=== PATIENT | female | born 1990 | race Hispanic/Latino ===

== ENCOUNTER 2020-05-02 11:13 | Inpatient (IN) | payer OTHER, SELFPAY ==
[2020-05-02] MEDS ORDERED: Dexamethasone 4 mg/ml Vial ONE (11:47)
[2020-05-02] MEDS ORDERED: Acetaminophen 500 MG TAB ONE (11:47)
[2020-05-02 12:01] LABS: #Lymphocytes 0.8 thou/uL (1.20-3.40); #Monocytes 0.4 thou/uL (0.11-0.59); #Neutrophils 6.2 thou/uL (1.40-6.50); %Basophils 0.1 % (0.0-1.0); %Eosinophils 0.1 % (0.0-10.0); %Lymphocytes 10.4 % (21.0-51.0); %Monocytes 5.3 % (0.0-10.0); %Neutrophils 84.1 % (42.0-75.0); Hemoglobin 11.9 g/dL (12.0-16.0); Mean Corpuscular HGB CONC 32.7 g/dL (32.0-36.0); Mean Corpuscular Hemoglobin 27.8 pg (27.0-31.0); Mean Corpuscular Volume 84.8 fL (78.0-98.0); Platelet Count 164 thou/uL (130-400); RBC Distribution Width 12.6 % (11.5-14.5); Red Blood Cell (RBC) Count 4.28 mill/uL (4.20-5.40); White Blood Cell (WBC) Count 7.3 thou/uL (4.8-10.8)
--- NOTE | 2020-05-02 12:02 | RAD ---
RADIOGRAPH CHEST 1 VIEW: DATE: 05/02/2020 TIME: 11:55 AM HISTORY: 29-year-old female with dyspnea COMPARISON: none FINDINGS: Shallow inspiration. Patchy small-moderate infiltrates at left upper lobe and left lower lobe. No pne umothorax. Nonspecific mild pulmonary densities at right base. IMPRESSION: Left-sided infiltrates versus for pneumonia.
[2020-05-02 12:09] LABS: Bilirubin Negative (Negative); Blood, Urine Negative (Negative); Clarity Clear (Clear); Glucose, Urine (Dipstick) Normal (Negative); Ketone, Urine Trace mg/dL (Negative); Leukocyte Negative Leu/uL (Negative); Nitrite Negative (Negative); Protein, Urine (Dipstick) Negative (Neg-Trace); Specific Gravity, Urine 1.004 (1.002-1.036); Urobilinogen Normal mg/dL (Less than 2)
[2020-05-02 12:16] LABS: ALT (SGPT) 27 U/L (8-55); AST (SGOT) 30 U/L (5-34); Albumin 3.4 g/dL (3.5-5.0); Alkaline Phosphatase 96 U/L (40-110); Anion Gap 10 mmol/L (10-20); BUN (Urea Nitrogen) 4 mg/dL (7.0-18.7); Bilirubin, Total 0.8 mg/dL (0.2-1.2); Calc. Creatinine Clearance 0 mL/min (70-130); Calcium 7.6 mg/dL (7.8-10.44); Carbon Dioxide 25 mmol/L (22-29); Chloride 104 mmol/L (98-107); Estimated GFR-MDRD Greater than 90; Globulin 3.6 g/dL (2.4-3.5); Glucose 84 mg/dL (70-105); Potassium 3.3 mmol/L (3.5-5.1); Sodium 136 mmol/L (136-145)
[2020-05-02] MEDS ORDERED: cefTRIAXone\\ROCEPHIN 1 GM VIAL ONE (14:01)
[2020-05-02] MEDS ORDERED: Azithromycin 500 MG VIAL ONE (14:01)
[2020-05-02] MEDS ORDERED: Sodium Chloride 0.9% 100 ML ONE (14:01)
--- NOTE | 2020-05-02 15:04 | PDOC.FM ---
- Objective Result Diagrams: 05/02/20 11:41 05/02/20 11:41
--- NOTE | 2020-05-02 15:15 | PDOC.FPRHP ---
- History of Present Illness Chief Complaint: Shortness of breath, Cough History of Present Illness: 29 year old @ 23 wks presents the emergency department complaining of shortness of breath and cough. Patient stated that on she developed gradual onset of shortness of breath and cough after being in contact with her mother who had similar symptoms. She states that the following day she was seen at [facility] in [place] and swabbed for covid-19 and subsequently resulted positive the following day. She states that since then she has been experiencing waxing and waning severity of shortness of breath, cough, fevers. She states that today while ambulating to the bathroom she became very short of breath to the point where she felt like she was going to pass out. This prompted her to seek evaluation on the emergency department today. Patient is followed for her in [place]. She states that her has been largely uncomplicated to this point. Her last ended in a section for breech presentation. She did notice some dark blood on tissue paper when wiping after using the bathroom this morning. She said that it was a very small amount of blood and she has not bled anymore since then. Denies any loss of fluid or decreased movement. In the room she states that she does not currently feel short of breath while on oxygen supplementation and not ambulating. She denies any chest pain, dizziness, nausea, vomiting, and diarrhea. ED Course: Pt received azithro, ceftriaxone, and dex while in ED. Dr. Huddleston discussed the case with Dr. Herrera who requested that we admit. - Allergies/Adverse Reactions Allergies Allergy/AdvReac Type Severity Reaction Status Date / Time No Known Allergies Allergy Unverified 05/02/20 15:32 - History PMHx:None PSHx: FHx: Father - HTN Social: Denies any alcohol, tobacco, drugs - Review of Systems General: reports: fever/chills. denies: weight/appetite/sleep changes Eyes: denies: vision changes, other ENT: denies: nasal congestion, rhinorrhea Respiratory: reports: cough, congestion, shortness of breath Cardiovascular: reports: chest pain (pleurisy). denies: palpitation, edema Gastrointestinal: denies: nausea, vomiting, diarrhea Genitourinary: reports: other (vaginal blood). denies: incontinence, dysuria Skin: denies: rashes, jaundice Musculoskeletal: reports: stiffness. denies: swelling Neurological: denies: syncope, seizure, weakness - Vital signs BP: 96/47, Pulse: 97, Resp: 31, Pain: 4, O2 sat: 99 on (3L Oxygen), Wt: 84kg - Physical Exam Constitutional: NAD, awake, alert and oriented, well developed HEENT: normocephalic and atraumatic, EOMI, MMM Neck: supple, FROM -Chest: Tender to palpation Heart: RRR, normal S1/S2 -Lungs: Tachypnea, poor inspiration, diminished breath sounds throughout, no extra sounds Abdomen: soft, non-tender -Abdomen: Gravid fundus palpable just above umbilicus Musculoskeletal: normal structure, normal tone Neurological: no focal deficit, CN II-XII intact Skin: no rash/lesions, capillary refill <2 seconds Heme/Lymphatic: no unusual bruising or bleeding, no purpura, no petechia Psychiatric: normal mood and affect, good judgment and insight, intact recent and remote memory FMR H&P: Results - Labs Result Diagrams: 05/02/20 11:41 05/02/20 11:41 Lab results: WBC 7.3 thou/uL (4.8-10.8) 05/02/20 11:41 Hgb 11.9 g/dL (12.0-16.0) L 05/02/20 11:41 Hct 36.3 % (36.0-47.0) 05/02/20 11:41 MCV 84.8 fL (78.0-98.0) 05/02/20 11:41 Plt Count 164 thou/uL (130-400) 05/02/20 11:41 Neutrophils % 84.1 % (42.0-75.0) H 05/02/20 11:41 Sodium 136 mmol/L (136-145) 05/02/20 11:41 Potassium 3.3 mmol/L (3.5-5.1) L 05/02/20 11:41 Chloride 104 mmol/L (98-107) 05/02/20 11:41 Carbon Dioxide 25 mmol/L (22-29) 05/02/20 11:41 BUN 4 mg/dL (7.0-18.7) L 05/02/20 11:41 Creatinine 0.66 mg/dL (0.6-1.1) 05/02/20 11:41 Glucose 84 mg/dL (70-105) 05/02/20 11:41 Lactic Acid 0.7 mmol/L (0.5-2.2) 05/02/20 11:41 Calcium 7.6 mg/dL (7.8-10.44) L 05/02/20 11:41 Total Bilirubin 0.8 mg/dL (0.2-1.2) 05/02/20 11:41 AST 30 U/L (5-34) 05/02/20 11:41 ALT 27 U/L (8-55) 05/02/20 11:41 Alkaline Phosphatase 96 U/L (40-110) 05/02/20 11:41 Serum Total Protein 7.0 g/dL (6.0-8.3) 05/02/20 11:41 Albumin 3.4 g/dL (3.5-5.0) L 05/02/20 11:41 Urine Ketones Trace mg/dL (Negative) A 05/02/20 11:56 Urine Blood Negative (Negative) 05/02/20 11:56 Urine Nitrite Negative (Negative) 05/02/20 11:56 Ur Leukocyte Esterase Negative Jah/uL (Negative) 05/02/20 11:56 - Radiology Interpretation Chest x-ray Status: report reviewed by me (Shallow inspiration. Patchy small-moderate infiltrates at left upper lobe and left lower lobe. No pneumothorax. Nonspecific mild pulmonary densities at right base.) FMR H&P: A/P - Plan Acute Hypoxic Respiratory Failure 2/2 COVID PNA - Day 7 of illness, confirmed + on 04/26 - 88% O2 sat on RA upon arrival - Currently stable on 0.5L NC - Start Dex, lovenox, will apply for convalescent plasma - Discussed remdesivir with Dr. Mueller who recommended holding off - Received azithro and ceftriaxone in ED but will DC due to unlikely bacterial etiology - procal 0.15 - Supplemental O2 with goal >92% 2nd Trimester - Had small instance of bleeding this morning, otherwise normal to this point - Daily NST ordered - Transvag US for assessment and cervical length VTE: SCD and lovenox Diet: Regular Plan: Admit to medical inpt for COVID management. ELOS >48hr. Rufus Atkins - PGY2 FMR H&P: Upper Level - Plan Date/Time: 05/02/20 0889
[2020-05-02] MEDS ORDERED: Acetaminophen 325 MG TAB PO PRN (15:32)
[2020-05-02] MEDS ORDERED: Ondansetron ODT 4 MG TAB SL PRN (15:32)
[2020-05-02] MEDS ORDERED: Ondansetron PF 4 MG/2 ML Vial IVP PRN (15:32)
[2020-05-02] MEDS ORDERED: Senokot S 8.6-50 MG TAB PO PRN (15:46)
[2020-05-02] MEDS ORDERED: Enoxaparin Sodium 40 MG/0.4 ML SYRINGE SC SCH (15:46)
[2020-05-02] MEDS ORDERED: Acetaminophen 650 MG Suppository PR PRN (15:46)
[2020-05-02 15:47] VITALS: BMI 37.0
[2020-05-02] MEDS: Benzonatate 100 MG CAP PO PRN (23:44)
[2020-05-03 06:41] LABS: #Lymphocytes 1.2 thou/uL (1.20-3.40); #Monocytes 0.4 thou/uL (0.11-0.59); #Neutrophils 8.5 thou/uL (1.40-6.50); %Basophils 0.1 % (0.0-1.0); %Eosinophils 0.1 % (0.0-10.0); %Lymphocytes 11.4 % (21.0-51.0); %Monocytes 4.1 % (0.0-10.0); %Neutrophils 84.3 % (42.0-75.0); Hemoglobin 11.1 g/dL (12.0-16.0); Mean Corpuscular HGB CONC 32.3 g/dL (32.0-36.0); Mean Corpuscular Hemoglobin 27.8 pg (27.0-31.0); Mean Platelet Volume 9.2 fL (7.4-10.4); Platelet Count 162 thou/uL (130-400); RBC Distribution Width 12.8 % (11.5-14.5); Red Blood Cell (RBC) Count 3.99 mill/uL (4.20-5.40); White Blood Cell (WBC) Count 10.1 thou/uL (4.8-10.8)
--- NOTE | 2020-05-03 06:57 | PDOC.FM ---
- Subjective Subjective: Pt feeling well this morning. States her SOB at baseline is better than yesterday but she gets very dyspneic with any ambulation. Denies feeling fevers. Notes poor sleep due to cough - Objective Vital Signs & Weight: Vital Signs (12 hours) Temp Pulse Resp BP Pulse Ox 05/03/20 05:00 98.8 F 105 H 20 107/61 95 05/03/20 00:00 98.5 F 89 19 101/62 93 L 05/02/20 20:55 98.2 F 80 17 99/73 93 L Weight Weight 85.9 kg I&O: 05/01/20 05/02/20 05/03/20 06:59 06:59 06:59 Intake Total 1780 Balance 178 Result Diagrams: 05/03/20 06:12 05/02/20 11:41 Phys Exam - Physical Examination Constitutional: NAD HEENT: moist MMs Neck: full ROM Diminished bi-basilar, worse on the left Cardiovascular: RRR, no significant murmur Gastrointestinal: soft, non-tender Musculoskeletal: no edema, pulses present Neurological: moves all 4 limbs Psychiatric: normal affect, A&O x 3 Skin: no rash Dx/Plan - Plan Plan: Acute Hypoxic Respiratory Failure 2/2 COVID PNA - Day 8 of illness, confirmed + on 04/26 - Currently stable on 0.5L NC - Dex, lovenox, will apply for convalescent plasma - Discussed remdesivir with Dr. Mueller who recommended holding off - Supplemental O2 with goal >92% 2nd Trimester - Light vag bleeding on wiping yesterday - Daily NST ordered - Transvag US for assessment and cervical length - Order from yesterday was DC'd, repalced today, awaiting results VTE: SCD and lovenox Diet: Regular Plan: Admit to medical inpt for COVID management. ELOS >48hr. Rufus Atkins - PGY2
[2020-05-03 06:58] LABS: ALT (SGPT) 22 U/L (8-55); AST (SGOT) 23 U/L (5-34); Alkaline Phosphatase 85 U/L (40-110); Anion Gap 12 mmol/L (10-20); BUN (Urea Nitrogen) 5 mg/dL (7.0-18.7); Bilirubin, Total 0.7 mg/dL (0.2-1.2); Calc. Creatinine Clearance 208 mL/min (70-130); Calcium 7.8 mg/dL (7.8-10.44); Carbon Dioxide 20 mmol/L (22-29); Chloride 106 mmol/L (98-107); Estimated GFR-MDRD Greater than 90; Globulin 3.1 g/dL (2.4-3.5); Glucose 90 mg/dL (70-105); Protein, Total 6.1 g/dL (6.0-8.3); Sodium 135 mmol/L (136-145)
[2020-05-03 07:28] LABS: Magnesium 1.8 mg/dL (1.6-2.6)
[2020-05-03 07:35] LABS: Phosphorus 1.8 mg/dL (2.3-4.7)
[2020-05-03] MEDS: Enoxaparin Sodium 40 MG/0.4 ML SYRINGE SC SCH (07:43)
[2020-05-03] MEDS: Dexamethasone 4 mg/ml Vial SLOW IVP SCH (07:43)
[2020-05-03] MEDS: Potassium Chloride 20 MEQ TAB PO SCH ×2 (07:43→16:59)
--- NOTE | 2020-05-03 08:01 | ULT ---
ULTRASOUND OBSTETRICAL LIMITED: DATE: 05/03/2020 HISTORY: 29-year-old COVID-19 positive female presents with vaginal bleeding FINDINGS: number: loco lie: Variable Maternal cervix: 3.5 cm. Closed. Placenta: Anterior. No placenta previa. No abruption identified. Amniotic fluid volume: VANE = 18.5cm heart rate: 158 bpm anatomy not evaluated biometry: Biparietal diameter (BPD): 5.5 cm 22 w 5 d Head circumference (HC): 20.7 cm 22 w 6 d Abdominal circumference (AC): 18.0 cm 22 w 6 d Femur length (FL): 4.0 cm 22 w 6 d Average ultrasound age (AUA): 22 w 6 d Estimated date of delivery (LEÓN): 08/31/2020 Estimated weight (EFW): 539 g +/- 80 g IMPRESSION: 1) Live 2nd trimester intrauterine gestation. 2) Estimated gestational age of 22 weeks, 6 days 3) variable lie. 4) no abruptio placentae or placenta previa identified.
[2020-05-03] MEDS ORDERED: PHOS-NAK 1 PKT PACK PO SCH (11:45)
[2020-05-03] MEDS: Acetaminophen 325 MG TAB PO PRN ×2 (17:21→22:18)
[2020-05-03] MEDS: Benzonatate 100 MG CAP PO PRN (20:07)
[2020-05-04 06:15] LABS: #Lymphocytes 1.2 thou/uL (1.20-3.40); #Monocytes 0.6 thou/uL (0.11-0.59); #Neutrophils 14.3 thou/uL (1.40-6.50); %Basophils 0.1 % (0.0-1.0); %Eosinophils 0.1 % (0.0-10.0); %Lymphocytes 7.5 % (21.0-51.0); %Monocytes 3.6 % (0.0-10.0); %Neutrophils 88.7 % (42.0-75.0); Hemoglobin 11.2 g/dL (12.0-16.0); Mean Corpuscular HGB CONC 32.8 g/dL (32.0-36.0); Mean Corpuscular Hemoglobin 27.2 pg (27.0-31.0); Mean Corpuscular Volume 82.8 fL (78.0-98.0); Mean Platelet Volume 9.1 fL (7.4-10.4); Platelet Count 192 thou/uL (130-400); RBC Distribution Width 12.8 % (11.5-14.5); Red Blood Cell (RBC) Count 4.11 mill/uL (4.20-5.40); White Blood Cell (WBC) Count 16.2 thou/uL (4.8-10.8)
[2020-05-04 06:38] LABS: ALT (SGPT) 25 U/L (8-55); AST (SGOT) 23 U/L (5-34); Albumin 3.3 g/dL (3.5-5.0); Alkaline Phosphatase 97 U/L (40-110); Anion Gap 12 mmol/L (10-20); BUN (Urea Nitrogen) 4 mg/dL (7.0-18.7); Bilirubin, Total 1.1 mg/dL (0.2-1.2); Calc. Creatinine Clearance 198 mL/min (70-130); Calcium 8.6 mg/dL (7.8-10.44); Carbon Dioxide 21 mmol/L (22-29); Chloride 105 mmol/L (98-107); Estimated GFR-MDRD Greater than 90; Globulin 3.7 g/dL (2.4-3.5); Glucose 101 mg/dL (70-105); Potassium 3.5 mmol/L (3.5-5.1); Sodium 134 mmol/L (136-145)
--- NOTE | 2020-05-04 06:41 | PDOC.FM ---
Addendum entered and electronically signed by Chana Viera MD 05/04/20 09:35 : Daily dopplers. No NST until 28wks Original Note: - Subjective Subjective: No overnight events. Endorses SOB but feels about the same as yesterday. She received convalescent plasma yesterday. Endorses diarrhea and cough. Has been using bedside commode. Would like to participate in Priority study. - Objective MAR Reviewed: Yes Vital Signs & Weight: Vital Signs (12 hours) Temp Pulse Resp BP Pulse Ox 05/04/20 03:50 97.8 F 105 H 20 105/68 95 05/03/20 23:15 109 H 05/03/20 23:00 98.9 F 119 H 21 H 106/66 93 L 05/03/20 19:55 98.3 F 110 H 20 112/72 93 L 05/03/20 19:30 93 L Weight Admit Weight 85.9 kg Weight 85.9 kg I&O: 05/02/20 05/03/20 05/04/20 06:59 06:59 06:59 Intake Total 1780 1410 Balance 1780 1410 Result Diagrams: 05/04/20 06:01 05/04/20 06:01 Phys Exam - Physical Examination Tachypneic HEENT: moist MMs Neck: supple Respiratory: no wheezing, clear to auscultation bilateral tacypneic Cardiovascular: RRR, no significant murmur Gastrointestinal: soft, positive bowel sounds Musculoskeletal: no edema Neurological: moves all 4 limbs Psychiatric: normal affect, A&O x 3 Skin: no rash Dx/Plan - Plan Plan: Acute Hypoxic Respiratory Failure 2/2 COVID PNA - Day 9 of illness, confirmed + on 04/26 - Overnight 0.5-2L NC - s/p Convalescent plasma on 05/03 - Continue Dex and ppx lovenox - Discussed remdesivir with Dr. Mueller who recommended holding off - Supplemental O2 with goal >92% 2nd Trimester - Daily NST - Transvag US: Cervix 3.5cm. biometry preformed. DVT ppx: Lovenox Addendum - Attending - Attending Attestation Date/Time: 05/04/20 0612 I personally evaluated the patient and discussed the management with Dr. Viera. I agree with the History, Examination, Assessment and Plan documented above with any addition or exceptions noted below. Continue supportive care. ABG appropriate for her current respiratory status and O2 requirement. Hopefully d/c in the next 2-3 days.
[2020-05-04] MEDS: Enoxaparin Sodium 40 MG/0.4 ML SYRINGE SC SCH (08:28)
[2020-05-04] MEDS: Dexamethasone 4 mg/ml Vial SLOW IVP SCH (08:28)
[2020-05-04 11:10] LABS: Actual Bicarbonate (HCO3a) 23.4 mEq/L (22-28); Base Excess (BEa) -0.1 mEq/L (-2.0 to +3.0); CO2 Tension 35.5 mmHg (35.0-45.0); Calcium, Ionized (arterial) 1.19 mmol/L (1.12-1.30); Carboxyhemoglobin (COHb) 0.3 gm% (0.0-3.0); Potassium - ABG Lab 3.56 mmol/L (3.70-5.30); pH, Arterial 7.44 (7.35-7.45)
[2020-05-04 11:15] LABS: ALV-art Gradient 58.745 (0-20); Hemoglobin (Hb) 20.6 g/dL (12.0-16.0); Puncture Site RRA
[2020-05-04] MEDS: Benzonatate 100 MG CAP PO PRN (20:15)
[2020-05-04] MEDS: Acetaminophen 325 MG TAB PO PRN (20:15)
[2020-05-05 06:43] LABS: ALT (SGPT) 24 U/L (8-55); AST (SGOT) 22 U/L (5-34); Albumin 3.1 g/dL (3.5-5.0); Alkaline Phosphatase 85 U/L (40-110); Anion Gap 11 mmol/L (10-20); BUN (Urea Nitrogen) 6 mg/dL (7.0-18.7); Bilirubin, Total 0.7 mg/dL (0.2-1.2); Calc. Creatinine Clearance 205 mL/min (70-130); Calcium 8.5 mg/dL (7.8-10.44); Carbon Dioxide 22 mmol/L (22-29); Chloride 105 mmol/L (98-107); Estimated GFR-MDRD Greater than 90; Globulin 3.4 g/dL (2.4-3.5); Glucose 82 mg/dL (70-105); Protein, Total 6.5 g/dL (6.0-8.3); Sodium 135 mmol/L (136-145)
[2020-05-05 06:48] LABS: #Lymphocytes 1.4 thou/uL (1.20-3.40); #Monocytes 0.6 thou/uL (0.11-0.59); #Neutrophils 8.9 thou/uL (1.40-6.50); %Basophils 0.2 % (0.0-1.0); %Eosinophils 0.2 % (0.0-10.0); %Lymphocytes 12.9 % (21.0-51.0); %Monocytes 5.6 % (0.0-10.0); %Neutrophils 81.1 % (42.0-75.0); Hemoglobin 10.5 g/dL (12.0-16.0); Mean Corpuscular HGB CONC 32.6 g/dL (32.0-36.0); Mean Corpuscular Hemoglobin 27.4 pg (27.0-31.0); Mean Platelet Volume 9.2 fL (7.4-10.4); Platelet Count 213 thou/uL (130-400); Red Blood Cell (RBC) Count 3.82 mill/uL (4.20-5.40); White Blood Cell (WBC) Count 10.9 thou/uL (4.8-10.8)
--- NOTE | 2020-05-05 06:54 | PDOC.FM ---
- Subjective Subjective: No overnight events. Reports she is feeling much better today. She is still requiring 0.5-1L NC. Feels SOB with just moving from bed to the chair next to her bed. She has not walked to the bathroom yet, using bedside commode. Endorses cough. - Objective MAR Reviewed: Yes Vital Signs & Weight: Vital Signs (12 hours) Temp Pulse Resp BP BP Pulse Ox 05/05/20 05:28 99 05/05/20 04:00 97.6 F 79 18 97/60 95 05/04/20 23:47 98.2 F 83 17 96/83 95 05/04/20 20:00 97.9 F 95 18 93/60 93 L Weight Admit Weight 85.9 kg Weight 85.9 kg I&O: 05/03/20 05/04/20 05/05/20 06:59 06:59 06:59 Intake Total 1780 1410 1680 Balance 1780 1410 1680 Result Diagrams: 05/05/20 05:44 05/05/20 05:44 Phys Exam - Physical Examination Constitutional: NAD HEENT: moist MMs Neck: supple Respiratory: no wheezing, clear to auscultation bilateral Cardiovascular: RRR, no significant murmur Gastrointestinal: soft, non-tender Musculoskeletal: pulses present Neurological: moves all 4 limbs Psychiatric: normal affect, A&O x 3 Dx/Plan - Plan Plan: Acute Hypoxic Respiratory Failure 2/2 COVID PNA - Day 10 of illness, confirmed + on 04/26 - Overnight 0.5L NC - s/p Convalescent plasma on 05/03 - Continue Dex and ppx lovenox - Not a candidate for remdesivir per Dr. Mueller - Supplemental O2 with goal >92% 2nd Trimester - Daily Dopplers - Transvag US: Cervix 3.5cm. biometry preformed. DVT ppx: Lovenox Addendum - Attending - Attending Attestation Date/Time: 05/05/20 1042 I personally evaluated the patient and discussed the management with Dr. Viera. I agree with the History, Examination, Assessment and Plan documented above with any addition or exceptions noted below. Her SpO2 was 94% on RA after going to bathroom. Will keep off O2 today and anticipate d/c tomorrow.
[2020-05-05 07:22] LABS: Phosphorus 2.7 mg/dL (2.3-4.7)
[2020-05-05] MEDS: Dexamethasone 4 mg/ml Vial SLOW IVP SCH (08:10)
[2020-05-05] MEDS: Potassium Chloride 20 MEQ TAB PO SCH ×2 (08:10→17:48)
[2020-05-05] MEDS: Enoxaparin Sodium 40 MG/0.4 ML SYRINGE SC SCH (08:11)
[2020-05-05] MEDS: Benzonatate 100 MG CAP PO PRN ×2 (08:15→20:10)
[2020-05-05] MEDS: Acetaminophen 325 MG TAB PO PRN ×2 (08:15→20:10)
[2020-05-06] MEDS: Benzonatate 100 MG CAP PO PRN (05:44)
[2020-05-06 06:04] LABS: #Lymphocytes 1.7 thou/uL (1.20-3.40); #Monocytes 0.5 thou/uL (0.11-0.59); #Neutrophils 5.2 thou/uL (1.40-6.50); %Basophils 0.2 % (0.0-1.0); %Eosinophils 0.3 % (0.0-10.0); %Lymphocytes 22.5 % (21.0-51.0); %Neutrophils 69.9 % (42.0-75.0); Hemoglobin 10.8 g/dL (12.0-16.0); Mean Corpuscular HGB CONC 33.2 g/dL (32.0-36.0); Mean Corpuscular Hemoglobin 28.2 pg (27.0-31.0); Mean Corpuscular Volume 84.9 fL (78.0-98.0); Mean Platelet Volume 9.5 fL (7.4-10.4); Platelet Count 212 thou/uL (130-400); Red Blood Cell (RBC) Count 3.82 mill/uL (4.20-5.40); White Blood Cell (WBC) Count 7.4 thou/uL (4.8-10.8)
[2020-05-06 06:17] LABS: Anion Gap 11 mmol/L (10-20); BUN (Urea Nitrogen) 7 mg/dL (7.0-18.7); CRP (Inflammatory) 6.29 mg/dL (= or < 0.5); Calc. Creatinine Clearance 198 mL/min (70-130); Calcium 8.7 mg/dL (7.8-10.44); Carbon Dioxide 21 mmol/L (22-29); Chloride 107 mmol/L (98-107); Estimated GFR-MDRD Greater than 90; Glucose 82 mg/dL (70-105); Potassium 3.4 mmol/L (3.5-5.1); Sodium 136 mmol/L (136-145)
[2020-05-06] MEDS ORDERED: Potassium Chloride 20 MEQ TAB PO SCH ×2 (07:15→08:00)
--- NOTE | 2020-05-06 07:16 | PDOC.FM ---
- Subjective Subjective: Continues to feel well this morning. No events overnight. Continued to tolerate weaned O2. Complains of feeling SOB with ambulation still. - Objective Vital Signs & Weight: Vital Signs (12 hours) Temp Pulse Resp BP BP Pulse Ox 05/06/20 03:49 93 L 05/06/20 00:42 97.9 F 83 17 100/64 93 L 05/05/20 20:32 97.6 F 73 18 101/63 95 Weight Admit Weight 85.9 kg Weight 85.9 kg I&O: 05/05/20 05/06/20 05/07/20 06:59 06:59 06:59 Intake Total 1680 1000 Balance 1680 1000 Result Diagrams: 05/06/20 05:22 05/06/20 05:22 Phys Exam - Physical Examination Constitutional: NAD HEENT: sclera anicteric Neck: full ROM Few scant crackles, good air movement Cardiovascular: RRR, no significant murmur Musculoskeletal: no edema Neurological: moves all 4 limbs Psychiatric: normal affect, A&O x 3 Skin: cap refill <2 seconds Dx/Plan - Plan Plan: Acute Hypoxic Respiratory Failure 2/2 COVID PNA - Day 11 of illness, confirmed + on 04/26 - Maintained sats >92% on RA overnight - s/p Convalescent plasma on 05/03 2nd Trimester - Daily Dopplers - Transvag US: Cervix 3.5cm. biometry WNL DVT ppx: Lovenox Diet: Regular IVF: SL Plan: Pt has been maintaining sats on room air now for >24hrs. Overall clinical status is good and disease process severity is continually trending downward. Pt is stable for DC at this time and will plan to discharge later this morning with order for home O2. Addendum - Attending - Attending Attestation Date/Time: 05/06/20 6050 I personally evaluated the patient and discussed the management with Dr. Atkins I agree with the History, Examination, Assessment and Plan documented above with any addition or exceptions noted below.
[2020-05-06] MEDS: Dexamethasone 4 mg/ml Vial SLOW IVP SCH (07:59)
[2020-05-06] MEDS: Enoxaparin Sodium 40 MG/0.4 ML SYRINGE SC SCH (08:00)
[2020-05-06 12:15] VITALS: BP 103/66; TEMP 97.5
--- NOTE | 2020-05-06 19:57 | DIS ---
DATE OF ADMISSION: 05/02/2020 DATE OF DISCHARGE: 05/06/2020 ADMITTING ATTENDING: Alvarez Stone MD. DISCHARGE ATTENDING: Blu Ferris MD. RESIDENT: Rufus Atkins DO. CONSULTS: None. PROCEDURES: None. IMAGIN. Chest x-ray 05/02/2020. Impression: Left-sided infiltrates versus pneumonia. 2. ultrasound on 05/03/2020. Impression: Live second trimester intrauterine gestation with estimated gestational age of 22 weeks and 6 days with variable lie. No abruption of placenta or placenta previa identified. Cervical length was 3.5 cm and closed. VANE of 18.5 cm. PRIMARY DIAGNOSIS: COVID pneumonia, acute hypoxic respiratory failure. SECONDARY DIAGNOSIS: Second trimester gestation. DISCHARGE MEDICATIONS: Continue vitamin. HISTORY OF PRESENT ILLNESS AND HOSPITAL COURSE: This is a 29-year-old female who presents to emergency department complaining of shortness of breath and a cough. The patient stated that on 04/25, she developed a gradual onset of shortness of breath and cough after being in close contact with her mother who had similar symptoms. The following day that she was COVID swabbed at [facility] in [place] and found to be positive for COVID-19. She subsequently developed waxing and waning levels of shortness of breath over the next several days until it got much worse on the day of her admission on 05/02/2020. The patient had a chest x-ray, which confirmed multifocal infiltrates. She was found to be hypoxic on room air into the upper 80s, which improved with low levels of supplemental oxygen ranging from 0.5 to 2 L. In the emergency department, she received azithromycin and ceftriaxone as well as dexamethasone. The laborists were consulted by the emergency department regarding her admission, but requested that the Family Medicine team admit her instead due to the active problem of COVID pneumonia. The patient was subsequently admitted and continued on daily corticosteroids as well as Lovenox. The patient gradually had improvement in her shortness of breath and her O2 requirement was titrated down to room air by the time of arrival. The patient continued to complain of shortness of breath with ambulation and had a positive walking test suggesting need for supplemental oxygen, so she was discharged to home with this. The patient was recommended to follow up with her PCP regarding her COVID pneumonia as well as her OB provider in [place]. While she was here, the patient had daily NSTs q.shift, which were all within normal limits. She also had an ultrasound performed due to a `very light level of bleeding just prior to arrival. The ultrasound showed a single intrauterine that was viable with appropriate VANE and biometry as well as cervical length of 3.5 cm. DISCHARGE INSTRUCTIONS: Location: Home. Diet: Regular. Activity: As tolerated by cardiopulmonary limits. Followup: Follow up PCP within 7 days. Job ID: [id number] [id number]
== END 2020-05-06 14:24 | disposition home or self-care (01) | DRG 831 ==
LOC: ERS 11:13 → T4-B 13:36
PROVIDERS: ADMIT Family Medicine; ATTEND Family Medicine
PROC: 8E0ZXY6 Isolation (ICD-10-PCS; principal; 2020-05-02)
DX: O98.512 Other viral diseases complicating pregnancy, second trimester (principal); U07.1 COVID-19; J12.89 Other viral pneumonia; J96.01 Acute respiratory failure with hypoxia; O99.512 Diseases of the respiratory system complicating pregnancy, second trimester; Z3A.23 23 weeks gestation of pregnancy
CPT/HCPCS: 36415; 36430; 71045; 76815; 80048; 80053; 81003; 82728; 82805; 83605; 83735; 84100; 84145; 85025; 85379; 86140; 86141; 86850; 86900; 86901; 87040; 87086; 94760; 96365; 96368; 96375; J0456; J0696; J1100; J1650; J3490

== ENCOUNTER 2023-02-01 10:43 | Outpatient (CLI) | payer OTHER | END 2023-02-01 10:44 | disposition home or self-care (01) | LOC: ULT 10:43 | PROVIDERS: ATTEND Advanced Practice Midwife | DX: N94.89 Other specified conditions associated with female genital organs and menstrual cycle (principal); R93.89 Abnormal findings on diagnostic imaging of other specified body structures | CPT/HCPCS: 76856 ==